=== PATIENT | male | born 1975 | race Two or more races ===

== ENCOUNTER 2018-03-21 22:02 | Emergency (ER) | payer MEDICAID ==
[~2018-03-21] VITALS: Ht 190.5 cm; Wt 90.7 kg
--- NOTE | 2018-03-21 22:10 | NUR ---
ED Nurse Note: Over dose the meth as per triag notes. however, during bed side assesment, pt stated he just drank alcohol and took his anti seizure medication, Klonopin. pt is able to ambulate, pt is alert and oriented times 4. pt stated no suicidal ideation at this time. vital signs are stable. pt eyes are round and reactive to light. seizure precutions active.
[2018-03-21 22:11] VITALS: BP 119/70
[2018-03-21] MEDS ORDERED: KLONOPIN0.5 MG ORAL (22:11)
[2018-03-21] MEDS ORDERED: LORazepam Inj 2mg/ml 1ml IV ONE (22:15)
--- NOTE | 2018-03-21 22:42 | Emergency Room Report ---
History of Present Illness General Chief Complaint: Overdose Source: Patient Present Illness HPI Patient presents by paramedics Paramedics report overdose on methamphetamine however talking to the patient he reports That he feels he likely mixed alcohol along with his Klonopin medications and the next thing he remembers is Waking up in the back of an uber he reports that he has severe anxiety Complains of palpitations but denies any chest pain Denies any other shortness of breath denies any back or flank pain denies any focal weakness Denies any homicidal or suicidal thoughts and reports an accidental ingestion of alcohol in combination with his medications Allergies: Coded Allergies: No Known Allergies (Unverified , 03/21/18) Patient History Past Medical History: see triage record Pertinent Family History: none Reviewed Nursing Documentation: PMH: Agreed; PSxH: Agreed Nursing Documentation-PMH Hx Seizures: Yes Review of Systems All Other Systems: negative except mentioned in HPI Physical Exam Vital Signs Date Time Temp Pulse Resp B/P (MAP) Pulse Ox O2 Delivery O2 Flow Rate FiO2 03/21/18 22:05 98.8 80 16 119/70 99 Room Air 03/21/18 22:11 99 Sp02 EP Interpretation: reviewed, normal General Appearance: well appearing - However mildly anxious, no apparent distress Head: normocephalic, atraumatic Eyes: bilateral eye PERRL, bilateral eye EOMI ENT: hearing grossly normal, normal pharynx, TMs + canals normal, uvula midline Neck: full range of motion, supple, no meningismus, no bony tend Respiratory: lungs clear, normal breath sounds, no rhonchi, no respiratory distress, no retraction, no accessory muscle use Cardiovascular #1: normal peripheral pulses, regular rate, rhythm, no edema, no gallop, no JVD, no murmur Gastrointestinal: normal bowel sounds, non tender, soft, no mass, no organomegaly, non-distended, no guarding, no hernia, no pulsatile mass, no rebound Genitourinary: no CVA tenderness Musculoskeletal: normal inspection Neurologic: responsive, motor strength/tone normal, sensory intact Psychiatric: anxious - Upon arrival Skin: normal color, no rash, warm/dry, palpation normal Lymphatic: normal inspection, no adenopathy Medical Decision Making Diagnostic Impression: Primary Impression: Drug overdose ER Course Multiple differentials in consideration Patient is complex requiring extensive blood work and intervention IV hydration is initiated patient is awake appears mildly confused Blood work and urine sample are obtained Patient shows positive for amphetamine At this time reports that he takes Klonopin on a regular basis and therefore this was also provided given his agitation After this patient rested comfortably Awakens GCS 15 awake and alert Patient is making multiple attempts of making contact with a friend Patient was allowed to rest and was medically stable for disposition While waiting for appropriate disposition it was noted that the patient became upset and angry regarding something that happened with security Labs Test 03/21/18 22:40 03/21/18 22:45 Serum Alcohol 114 mg/dL White Blood Count 8.0 K/UL (4.8-10.8) Red Blood Count 5.36 M/UL (4.70-6.10) Hemoglobin 16.6 G/DL (14.2-18.0) Hematocrit 50.1 % (42.0-52.0) Mean Corpuscular Volume 93 FL (80-99) Mean Corpuscular Hemoglobin 31.0 PG (27.0-31.0) Mean Corpuscular Hemoglobin Concent 33.1 G/DL (32.0-36.0) Red Cell Distribution Width 12.9 % (11.6-14.8) Platelet Count 301 K/UL (150-450) Mean Platelet Volume 5.5 FL (6.5-10.1) Neutrophils (%) (Auto) 43.9 % (45.0-75.0) Lymphocytes (%) (Auto) 41.1 % (20.0-45.0) Monocytes (%) (Auto) 10.9 % (1.0-10.0) Eosinophils (%) (Auto) 2.9 % (0.0-3.0) Basophils (%) (Auto) 1.2 % (0.0-2.0) Sodium Level 143 MMOL/L (136-145) Potassium Level 3.8 MMOL/L (3.5-5.1) Chloride Level 103 MMOL/L (98-107) Carbon Dioxide Level 30 MMOL/L (21-32) Anion Gap 10 mmol/L (5-15) Blood Urea Nitrogen 10 mg/dL (7-18) Creatinine 0.9 MG/DL (0.55-1.30) Estimat Glomerular Filtration Rate > 60 mL/min (>60) Glucose Level 114 MG/DL (74-106) Calcium Level 9.0 MG/DL (8.5-10.1) Urine Opiates Screen Negative (NEGATIVE) Urine Barbiturates Screen Negative (NEGATIVE) Phencyclidine (PCP) Screen Negative (NEGATIVE) Urine Amphetamines Screen Positive (NEGATIVE) Urine Benzodiazepines Screen Negative (NEGATIVE) Urine Cocaine Screen Negative (NEGATIVE) Urine Marijuana (THC) Screen Negative (NEGATIVE) Last Vital Signs Date Time Temp Pulse Resp B/P (MAP) Pulse Ox O2 Delivery O2 Flow Rate FiO2 03/21/18 22:11 80 16 Room Air 99 03/21/18 22:11 98.8 119/70 99 Status: improved Disposition: HOME, SELF-CARE Condition: Improved Referrals: NOT CHOSEN IPA/MD,REFERRING (PCP) Additional Instructions: Patient is provided with the discharge instructions notified to follow up with primary doctor in the next 2-3 days otherwise return to the er with any worsening symptoms. Please note that this report is being documented using [employer] technology. This can lead to erroneous entry secondary to incorrect interpretation by the dictating instrument. Mike Morales DO Mar 21, 2018 22:42
[2018-03-21 23:18] LABS: BASOPHILS % (AUTO) 1.2 % (0.0-2.0); EOSINOPHILS % (AUTO) 2.9 % (0.0-3.0); HEMATOCRIT 50.1 % (42.0-52.0); HEMOGLOBIN 16.6 G/DL (14.2-18.0); LYMPHOCYTES % (AUTO) 41.1 % (20.0-45.0); MEAN CORPUSCULAR VOLUME 93 FL (80-99); MONOCYTES % (AUTO) 10.9 % (1.0-10.0); NEUTROPHILS % (AUTO) 43.9 % (45.0-75.0); PLATELET COUNT 301 K/UL (150-450); RED BLOOD COUNT 5.36 M/UL (4.70-6.10); RED CELL DISTRIBUTION WIDTH 12.9 % (11.6-14.8)
[2018-03-21 23:47] LABS: ANION GAP 10 mmol/L (5-15); BLOOD UREA NITROGEN 10 mg/dL (7-18); CARBON DIOXIDE 30 MMOL/L (21-32); CHLORIDE 103 MMOL/L (98-107); CREATININE 0.9 MG/DL (0.55-1.30); POTASSIUM 3.8 MMOL/L (3.5-5.1); SODIUM 143 MMOL/L (136-145)
[2018-03-22 00:10] VITALS: BP 112/73
--- NOTE | 2018-03-22 00:30 | NUR ---
ED Nurse Note: As per ERMD order and charge nurse order, have pt DC when sober to go home.
[2018-03-22 01:01] VITALS: BP 115/74
[2018-03-22 03:00] VITALS: BP 116/76
--- NOTE | 2018-03-22 03:00 | NUR ---
ED Nurse Note: PT is DC per ERMD order. pt is alert and oriented times 4. no skin issues noted in ER. pt has left with all belonings. Full Security staff also verified pt has left with all belonging, as well as DC notes prescriptions. pt is able to teach back DC notes and prescriptions. pt is able to ambulate with a steady gait. all vital signs, pt condition, and status is reported to ERMD prior to DC. pt is instructed to follow up with primary MD as soon as possible. PT is instructed to return to ER as soon as possible if any reoccurance of symptoms. vital signs, status and condition are stable for DC. PT ID and IV removed. during DC pt declined to call friends and family, declined taxi voucher. all medical devices removed, no medical equipment was on pt during DC.
== END 2018-03-22 03:00 | disposition home or self-care (01) ==
LOC: EDBD 22:02 → EMR 22:22
DX: T50.901A Poisoning by unspecified drugs, medicaments and biological substances, accidental (unintentional), initial encounter (principal); T51.0X1A Toxic effect of ethanol, accidental (unintentional), initial encounter; Y92.89 Other specified places as the place of occurrence of the external cause; R78.4 Finding of other drugs of addictive potential in blood; F41.9 Anxiety disorder, unspecified; F17.200 Nicotine dependence, unspecified, uncomplicated
CPT/HCPCS: 36415; 80048; 80307; 80329; 85025; 96361; 96374; 99284